=== PATIENT | male | born 1970 | race Caucasian/White ===

== ENCOUNTER 2023-11-17 10:47 | Emergency (ER) | payer SELFPAY ==
[2023-11-17] MEDS ORDERED: ACETAMINOPHEN INJECTION 100 ML IVPB ONE (11:16)
[2023-11-17] MEDS ORDERED: FAMOTIDINE 20 MG/50 ML IVPB 20 MG/50 ML MG IVPB ONE (11:16)
[2023-11-17] MEDS ORDERED: MAG HYDROX/AL HYDROX/SIMETH 30 ML UNIT-DOSE CUP ONE (11:17)
[2023-11-17 11:28] VITALS: BMI 39.6
[2023-11-17] MEDS: ACETAMINOPHEN 1000 MG/100 ML BAG IVPB ONE (11:30)
[2023-11-17] MEDS: MAG HYDROX/AL HYDROX/SIMETH -MYLANTA- ORAL SUSPENSION PO ONE (11:30)
[2023-11-17] MEDS: FAMOTIDINE 20 MG/50 ML IVPB 20 MG/50 ML MG IVPB ONE (11:45)
[2023-11-17 11:59] LABS: HEMOGLOBIN 16.1 G/dL (11.7-16.9); MCH 30.1 pg (25.7-33.7); MCHC 34.2 g/dl (32.0-35.9); MEAN PLT VOLUME 8.1 fl (7.5-11.1); PLATELET COUNT 182.9 10^3/uL (134-434); RBC 5.34 10^6/uL (4.00-5.60); WHITE BLOOD COUNT 13.8 10^3/uL (4.0-10.8)
[2023-11-17 12:11] LABS: ALBUMIN 4.2 g/dl (3.4-5.0); BILIRUBIN,TOTAL 0.9 mg/dl (0.2-1); CALCIUM 8.8 mg/dl (8.5-10.1); CREATININE 1.2 mg/dl (0.6-1.3); MAGNESIUM 1.7 mg/dL (1.8-2.4); POTASSIUM 3.8 mmol/L (3.5-5.1); TOT PROT 6.6 g/dl (6.4-8.2)
[2023-11-17 12:52] LABS: PLATELET ESTIMATE ADEQUATE
[2023-11-17] MEDS ORDERED: KETOROLAC TROMETHAMINE 15 MG/ML VIAL ONE (13:04)
[2023-11-17] MEDS: KETOROLAC TROMETHAMINE 15 MG/ML VIAL IVPUSH ONE (13:05)
[2023-11-17 19:42] VITALS: BP 146/82; PULSE 80; RESP 19; TEMP 99.1
[2023-11-17] MEDS: IBUPROFEN 600 MG TABLET (FP) PO ONE (22:05)
[2023-11-17] MEDS: AMOX TR/POT CLAV 875MG/125MG TABLETS (FP) PO ONE (22:22)
[2023-11-17] MEDS: ACETAMINOPHEN 325 MG TABLET (FP) PO ONE (22:22)
== END 2023-11-17 22:22 | disposition home or self-care (01) ==
LOC: FER 10:47
PROC: 3E033GC Introduction of Other Therapeutic Substance into Peripheral Vein, Percutaneous Approach (ICD-10-PCS; principal; 2023-11-17)
PROC: 3E033GC Introduction of Other Therapeutic Substance into Peripheral Vein, Percutaneous Approach (ICD-10-PCS; 2023-11-17)
PROC: 3E033NZ Introduction of Analgesics, Hypnotics, Sedatives into Peripheral Vein, Percutaneous Approach (ICD-10-PCS; 2023-11-17)
DX: R10.9 Unspecified abdominal pain (principal); R50.9 Fever, unspecified; K57.92 Diverticulitis of intestine, part unspecified, without perforation or abscess without bleeding; Z20.822 Contact with and (suspected) exposure to COVID-19
CPT/HCPCS: 0241U-QW; 36415; 71045-TC-FY; 74176-TC; 80053; 81003; 83690; 83735; 85027; 87086; 93005; 99285-25; J0131